=== PATIENT | male | born 1995 | race Caucasian/White ===

== ENCOUNTER 2016-09-17 12:00 | Emergency (ER) | payer OTHER ==
[2016-09-17 12:19] VITALS: BP 133/92
[2016-09-17] MEDS ORDERED: Naproxen 500 MG Tab PO ONE (12:45)
--- NOTE | 2016-09-17 13:28 | EDM.PDOC ---
ED HPI Trauma - General Chief Complaint: Upper Extremity Injury/Pain Stated Complaint: L SHOULDER INJURY Time Seen by Provider: 09/17/16 12:29 Source: Reports: Patient, RN notes reviewed History Limitations: Reports: No limitations - History of Present Illness INITIAL COMMENTS - FREE TEXT/NARRATIVE: The patient reports that he was at football practice around noon today and hit another player, resulting in pain to his left shoulder, primarily on the superior, posterior, and axillary areas. He is not complaining of anterior or lateral shoulder pain. The patient reports prior arthroscopic labrum tear repair April 2014 in [facility]. Allergies/ADRs: Allergies Penicillins Allergy (Verified 09/17/16 12:19) Airway Tightness Home Medications: Ambulatory Orders Naproxen 1 tab PO Q12H PRN #20 tablet 09/17/16 Past Medical History - Past Surgical History GI Surgical History: Reports: Appendectomy Musculoskeletal Surgical History: Reports: Ganglion cyst (right wrist), Shoulder surgery (left, labrum repair, arthroscopic) Social & Family History - Family History Family Medical History: Noncontributory - Tobacco Use Smoking Status *Q: Never Smoker Second Hand Smoke Exposure: No - Caffeine Use Caffeine Use: Reports: None - Alcohol Use Alcohol Use History: Yes Alcohol Use Frequency: Socially - Recreational Drug Use Recreational Drug Use: No - Living Situation & Occupation Living situation: Reports: single, other (with roomates) Occupation: student ([employer]) Review of Systems - Review of Systems Review Of Systems: See Below Constitutional: Reports: no symptoms Eyes: Reports: no symptoms Ears: Reports: no symptoms Nose: Reports: no symptoms Mouth/Throat: Reports: no symptoms Respiratory: Reports: No Symptoms Cardiovascular: Reports: no symptoms GI/Abdominal: Reports: No symptoms Genitourinary: Reports: no symptoms Musculoskeletal: Reports: no symptoms Skin: Reports: no symptoms Neurological: Reports: No Symptoms Psychiatric: Reports: no symptoms Trauma Exam - Physical Exam Exam: See Below Exam Limited By: No limitations General Appearance: Reports: alert, WD/WN, no apparent distress Extremities: Reports: other (No visible abnormality to the left shoulder, such as swelling, erythema, ecchymosis, or abrasion. The patient reports some tenderness to palpation along the superior, posterior, and axillary areas. No tenderness to palpation of the lateral or anterior shoulder. Pain is induced with flexion and extension against resistance, however, no pain with abduction or adduction, internal rotation, or external rotation against resistance. Pain is induced with AROM, and the patient initially indicated that he could not raise his left arm above shoulder height, however, he later did so spontaneously. Neurovascular status of the left upper extremity is intact.) Course - Vital Signs Last Recorded V/S: Last Vital Signs Temp 36.3 C 09/17/16 12:16 Pulse 60 09/17/16 12:16 Resp 18 09/17/16 12:16 BP 133/92 H 09/17/16 12:16 Pulse Ox 100 09/17/16 12:16 - Orders/Labs/Meds Orders: Active Orders 24 hr Category Date Time Status Shoulder Comp Lt [CR] Stat Exams 09/17/16 12:37 Taken DME for Discharge [COMM] Stat Oth 09/17/16 13:28 Ordered Meds: Medications Discontinued Medications Generic Name Dose Route Start Last Admin Trade Name Freq PRN Reason Stop Dose Admin Naproxen 500 mg 09/17/16 12:45 09/17/16 13:33 Naprosyn PO 09/17/16 12:46 500 mg ONETIME ONE Administration - Radiology Interpretation Free Text/Narrative:: 4-view radiographs of the left shoulder appear to be completely normal. No fracture or dislocation identified. Formal read per the Radiologist pending. - Re-Assessments/Exams Free Text/Narrative Re-Assessment/Exam: 09/17/16 13:26 The patient's symptoms are more consistent with a rotator cuff injury, as opposed to a SLAP lesion. I will place the patient into a shoulder sling today , however, I am going to recommend PROM over the weekend, then followup with Ortho this coming week. I will prescribe naproxen. Departure - Departure Time of Disposition: 13:33 Disposition: Home, Self-Care 01 Condition: good Clinical Impression: Injury of left shoulder Prescriptions: Naproxen 1 tab PO Q12H PRN #20 tablet PRN Reason: Pain Instructions: Shoulder Pain, Shoulder Range of Motion Exercises Referrals: PCP,None [Primary Care Provider] - Junior Olvera MD [Physician] - Forms: ED Department Discharge, Return to Work/School Form Additional Instructions: You were seen in the emergency room today after developing pain in your left shoulder during football practice. Workup in the ER included x-rays of your shoulder, which were entirely normal. Based on your examination, your injury may be due to a strain of your rotator cuff. It is NOT likely that you have re-injured your labrum. You have been placed in a shoulder sling. Wear this over the weekend, however, you need to do passive range of motion (swinging your arm, wall walking, etc.) for 15 minutes, 4 times a day. You have been started on the pain medicine naproxen. Take one tablet every 12 hours, with food, as prescribed. If your shoulder is still sore early this coming week, please followup with the Orthopedic Surgeon Dr. Olvera. If any other problems, please do not hesitate to return to the ER. - My Orders Last 24 Hours: My Active Orders 09/17/16 12:37 Shoulder Comp Lt [CR] Stat 09/17/16 13:28 DME for Discharge [COMM] Stat - Assessment/Plan Last 24 Hours: My Active Orders 09/17/16 12:37 Shoulder Comp Lt [CR] Stat 09/17/16 13:28 DME for Discharge [COMM] Stat
--- NOTE | 2016-09-18 09:26 | CR ---
Left shoulder: Three views of the left shoulder were obtained. Comparison: No previous study. Glenohumeral joint appears within normal limits. Distal clavicle is slightly elevated in relation to the acromion process. Mild acromioclavicular separation is possible. No acute fracture or dislocation is seen. Impression: 1. Possible mild acromioclavicular separation. 2. Left shoulder study is otherwise unremarkable. Diagnostic code #3
== END 2016-09-17 14:00 | disposition home or self-care (01) ==
LOC: JD.ED 12:00
DX: S49.92XA Unspecified injury of left shoulder and upper arm, initial encounter (principal); Z88.0 Allergy status to penicillin; Z79.899 Other long term (current) drug therapy; W50.0XXA Accidental hit or strike by another person, initial encounter
CPT/HCPCS: 73030; 99284; A9270; 99282